=== PATIENT | male | born 1955 | race Caucasian/White ===

== ENCOUNTER → 2020-06-11 | Outpatient (CLI) | payer MEDICARE, OTHER ==
[~2020-06-11] MED LIST: ASPI-630 PO; HYDR12.572 PO; LISI1TAB23 PO; POTA10TA5 PO; POTA20TA4 PO; SIMV20TA18 PO; SITA1TAB11 PO
== END ==
LOC: LAB 08:05
PROVIDERS: ATTEND Nurse Anesthetist, Certified Registered
DX: Z01.812 Encounter for preprocedural laboratory examination (principal); Z20.828 Contact with and (suspected) exposure to other viral communicable diseases
CPT/HCPCS: U0003-CS

== ENCOUNTER → 2020-06-15 | Day surgery (SDC) | payer MEDICARE, OTHER ==
[~2020-06-15] MED LIST changes: +ACETAMINOPHEN 325 MG TABLET PO PRN; +ALBUTEROL SULFATE 2.5 MG/3 ML NEBU. NEB PRN; +ATROPINE 0.5 MG/5 ML DISP.SYRIN. IV PRN; +IV RINGERS SOLUTION,LACTATED 1,000 ML IV SCH; +MIDAZOLAM HCL PF 2 MG/2 ML VIAL. IV PRN; +ONDANSETRON PF 4 MG/2 ML VIAL. IV PRN; +PHENOL ORAL SPRAY 177ML BOTTLE. MM PRN; +PROPOFOL 10,000 MCG/ML (20ML) VIAL IV ONE; +diphenhydrAMINE 50 MG/ML VIAL IV PRN
[2020-06-15 09:50] VITALS: BP 143/86
--- NOTE | 2020-06-17 19:09 | PATHOLOGY ---
[facility] Accession Number: [id number] . 01 Material submitted: . colon - BIOPSY TRANSVERSE POLYP. Modifiers: transverse . 01 Clinical history: . FAMILY HX COLON CA . 02 Diagnosis: Colon biopsies, transverse colon polyp: - Tubular adenoma. (JPM:[facility]; 06/17/2020) S 06/17/2020 0858 Local . 02 Comment: There is no high grade dysplasia or evidence of malignancy. (JPM:[place]; 06/17/2020) . 02 Electronically signed: . Cameron Canales MD, Pathologist NPI- [id number] . 01 Gross description: . The specimen is received in formalin, labeled "Emmanuel Te-Moak, biopsy transverse polyp". Received are two segments of pale [place] soft tissue ranging in size from 0.2 to 0.3 cm in maximum dimensions. The specimen is submitted entirely in cassette A1. ([facility]; 06/16/2020) QA/QA 06/16/2020 1446 Local . 02 Pathologist provided ICD-10: D12.3 . 02 CPT . 160310 Specimen Comment: A courtesy copy of this report has been sent to [phone] Specimen Comment: [phone] Specimen Comment: Report sent to / DR ESPINOSA Performed at: 01 [facility] [address], [place] [id number] MD Wilfredo Goodwin MD Phone: [phone] Performed at: 02 [facility] [address], [place] [id number] MD Cameron Canales MD Phone: [phone]
== END | disposition home or self-care (01) ==
LOC: SURG 08:04
PROVIDERS: ATTEND Emergency Medicine
DX: Z12.11 Encounter for screening for malignant neoplasm of colon (principal); D12.3 Benign neoplasm of transverse colon; K57.30 Diverticulosis of large intestine without perforation or abscess without bleeding; I10 Essential (primary) hypertension; J30.1 Allergic rhinitis due to pollen; G47.33 Obstructive sleep apnea (adult) (pediatric); E66.01 Morbid (severe) obesity due to excess calories; M19.90 Unspecified osteoarthritis, unspecified site; E11.9 Type 2 diabetes mellitus without complications; Z79.82 Long term (current) use of aspirin; Z83.79 Family history of other diseases of the digestive system; Z79.899 Other long term (current) drug therapy; Z98.890 Other specified postprocedural states; Z80.0 Family history of malignant neoplasm of digestive organs; Z68.36 Body mass index [BMI] 36.0-36.9, adult
CPT/HCPCS: 45380; 82947; J2704; J7120